=== PATIENT | female | born 1995 | race Caucasian/White ===

== ENCOUNTER 2017-09-28 22:58 | Emergency (ER) | payer BC ==
[~2017-09-28] VITALS: Ht 149.9 cm; Wt 62.1 kg
[2017-09-28 23:03] VITALS: TEMP 37.1; Ht 149.9 cm; Wt 62.1 kg
[2017-09-28] MEDS ORDERED: DiphenhydrAMINE HCL 50 MG/ML VIAL IV STA (23:10)
[2017-09-28] MEDS ORDERED: FAMOTIDINE 20MG/5ML IV PUSH IV STA (23:10)
[2017-09-28] MEDS ORDERED: DEXAMETHASONE **PF** INJ 10 MG/ML VIAL IV ONE (23:15)
[2017-09-29 00:14] VITALS: BP 121/82; PULSE 87; O2SAT 96
--- NOTE | 2017-09-29 00:18 | EMERGENCY ROOM VISIT NOTE ---
History First contact with patient: 23:09 Chief Complaint: ALLERGIC REACTION Stated Complaint: ALLERGIC REACTION, NUMB MOUTH, VOMITING, ITCHY EYE Nursing Triage Summary: pt having allergic reaction to clarithromycin. took first dose last night. took 1 benadryl at 2200. having rash to face, itching throat. History of Present Illness The patient is a 22 year old female who presents to the Emergency Room with complaints of allergic reaction shortly after taking clarithromycin tonight. Patient was prescribed this as she has had a cough for 2 weeks. Patient complains of facial swelling and rash and itchiness. She took one Benadryl. Patient denies chest pain, dyspnea, feeling of impending doom, throat tightness , abdominal pain, neck stiffness, fever, chills. She is tolerating p.o. fluids and food. Review of Systems An 10 system review of systems was completed with positives and pertinent negatives listed in the HPI. Past Medical/Surgical History Seizure disorder, tonsillectomy, appendectomy, right oophorectomy Social History Smoking Status: Never Smoker Smokeless Tobacco Use: No Alcohol Use: none Drug Use: none Occupation Status: [employer] student Physical Exam Vital Signs Date Time Temp Pulse Resp B/P (MAP) Pulse Ox O2 Delivery O2 Flow Rate FiO2 09/28/17 23:15 99 Room Air 09/28/17 23:03 37.1 83 18 123/83 99 Room Air Physical Exam VITALS: Vitals are noted on the nurse's note and reviewed by myself. Vital signs stable. GENERAL: Pleasant female speaking in full sentences, in no acute distress, nondiaphoretic, well-developed well-nourished. SKIN: The skin was without rashes, erythema, edema, or bruising. There is no tenting of the skin. Capillary reflex less than 2 seconds. HEAD: Normocephalic atraumatic. Face: Slightly erythematous with minimal perioral swelling that is blanchable EARS: External auditory canals clear, tympanic membranes pearly nolen without erythema or effusion bilaterally. EYES: Pupils equal round and reactive to light and accommodation. Conjunctivae without injection, sclerae without icterus. Extraocular movements intact. NOSE: Patent, turbinates without inflammation or discharge. No sinus tenderness. MOUTH: Mucous membranes moist. Pharynx without erythema or exudate. Uvula midline. Airway patent. Tongue does not deviate. No airway compromise, patient is not drooling NECK: Supple without nuchal rigidity. No lymphadenopathy. No thyromegaly. Cervical spine is nontender. No JVD. HEART: Regular rate and rhythm without murmurs gallops or rubs. LUNGS: Clear to auscultation bilaterally without wheezes, rales or rhonchi. No dullness to percussion. No retractions or accessory muscle use. ABDOMEN: Positive bowel sounds x 4. Normal tympanic percussion. Soft, nontender, without masses or organomegaly. Wise sign negative. No guarding or rebound tenderness. MUSCULOSKELETAL: No muscle atrophy, erythema, or edema noted. NEURO: Patient was alert and oriented to person place and time. Normal sensation to light and sharp touch. No focal neurological deficits. Medical Decision & Procedures Medications Administered Medications (Trade) Dose Ordered Sig/Arcenio Route Start Time Stop Time Status Last Admin Dose Admin Dexamethasone Sodium Phosphate (Dexamethasone Inj Pf) 10 mg NOW ONCE IV 09/28/17 23:15 09/28/17 23:16 DC 09/28/17 23:36 10 MG Diphenhydramine HCl (Benadryl Inj) 25 mg NOW STAT IV 09/28/17 23:10 09/28/17 23:12 DC 09/28/17 23:36 25 MG Famotidine (Pepcid 20mg Iv Push) 20 mg ONE STAT IV 09/28/17 23:10 09/28/17 23:12 DC 09/28/17 23:36 20 MG ED Course Prior records/ancillary studies reviewed. Triage Nursing notes reviewed. The patient's history was concerning for possible allergic reaction. Differential diagnosis: Etiologies such as allergic reaction, anaphylaxis, urticaria, Ruiz-Damon syndrome, toxic epidermal necrolysis, erythema multiforme, cellulitis, as well as others were entertained. Physical examination: As above. ER treatment provided: Continuous cardiac monitoring Benadryl 25 mg IV Pepcid 20 mg IV Decadron 10 mg IV On reassessment the patient felt better. Diagnostic interpretation by me: Chest x-ray with no acute consolidation, pneumothorax or free air per my interpretation It appears the patient had an allergic reaction most likely from the antibiotic she took since symptoms started shortly after this.This is marked as an allergy. Patient was informed not to take this medicine in the future. The above treatment did well to reverse the symptoms. After prolonged monitoring and frequent reassessments the patient did very well and symptoms resolved. The patient was counseled on the spectrum of this disease process and told to avoid potential triggers. I gave my usual and customary discussion regarding this issue. By the evaluation outlined above emergent etiologies such as recurring anaphylaxis, anaphylatic shock, airway compromise, Ruiz-Damon syndrome, toxic epidermal necrolysis, erythema multiforme, infectious etiologies, as well as others were deemed relatively unlikely. The pt informed about the findings as listed above. All questions were answered and pleased with the treatment. Return instructions were outlined and the patient was discharged in stable condition. Outpatient prescription management: EpiPen prednisone Referral: The patient was referred back to primary care physician for follow-up in 2-3 days for a recheck of the current condition. Case reviewed with my attending The chart was completed utilizing [employer] Speech voice recognition software. Grammatical errors, random word insertions, pronoun errors, and incomplete sentences are an occassional consequence of this system due to software limitations, ambient noise, and hardware issues. Any formal questions or concerns about the content, text, or information contained within the body of this dictation should be directly addressed to the physician mechanic assistant for clarification. Medical Decision As above Medication Reconcilliation Current Medication List: was personally reviewed by me Blood Pressure Screening Patient's blood pressure: Normal blood pressure Impression Primary Impression: Adverse reaction to drug Departure Information Dispostion Home / Self-Care Condition GOOD Referrals No Doctor, Assigned (PCP) Patient Instructions My [facility] Additional Instructions DO NOT drive, drink alcohol, operate machinery, or perform dangerous activities today. You were given medications in the ER that can affect your ability to safely function or operate a vehicle. Marked clarithromycin as an allergy and do not take this in the future until cleared by the family care doctor. Epi-Pen: Use one injection as instructed for severe allergic reactions associated with shortness of breath, difficulty breathing, or throat or tongue swelling. If you use this injection call 911 or proceed immediately to the nearest Emergency Room. Prednisone 50mg: Once daily until the prescription is finished. It is best to take this earlier in the day as some patients note occasional difficulty falling asleep when taken in the late evening. Diphenhydramine(Benadryl) 25mg: use 25 to 50 mg every six hours for swelling, itching, or hives. This medication is sedating and will cause drowsiness. Avoid alcohol, operating machinery or dangerous equipment, working on ladders or roofs, DRIVING, or situations where being under the influence may be dangerous. Zantac 75: Take two pills twice a day along with Benadryl as needed for swelling , itching, or hives. Most people know this for its affect on the stomach, but it also acts similar to, but less potent than Benadryl for allergic reactions. Both the Benadryl and the Zantac are available [id number]. Continue current medications. Return to the emergency department for worsening of your rash, swelling of your face, lips, tongue, or throat, difficulty breathing, vomiting, or as needed. Follow-up with your primary care physician in 2 to 3 days for a recheck of your current condition. Problem Qualifiers Primary Impression: Adverse reaction to drug Encounter type: initial encounter Qualified Codes: T88.7XXA - Unspecified adverse effect of drug or medicament, initial encounter
[2017-09-29] MEDS ORDERED: EPINEPHRINE ADULT AUTO-INJECT 0.3 MG SYR IM ONE (00:30)
[2017-09-29] MEDS ORDERED: PRED50TA PO (00:36)
[2017-09-29] MEDS ORDERED: LEVE500T13 PO ×2 (00:43)
[2017-09-29] MEDS ORDERED: BCPILLS PO (00:43)
--- NOTE | 2017-09-29 06:37 | DIAGNOSTIC IMAGING REPORT ---
CHEST 2 VIEWS ROUTINE HISTORY: 22 years-old Female cough x 2 weeks acute cough COMPARISON: None available TECHNIQUE: PA and lateral views of the chest FINDINGS: The cardiomediastinal and hilar silhouettes are within normal limits. There is no pneumothorax, pleural effusion, focal airspace consolidation or overt pulmonary edema. The bones of the chest appear grossly intact. IMPRESSION: No acute process. The above report was generated using voice recognition software. It may contain grammatical, syntax or spelling errors. Electronically signed by: Quco Hurtado M.D. 09/29/2017 6:36 AM Dictated Date/Time: 09/29/2017 6:34 AM
== END 2017-09-29 00:44 | disposition home or self-care (01) ==
LOC: C.EDB 23:00 → C.EDC 09-29 00:44
DX: R21 Rash and other nonspecific skin eruption (principal); L29.9 Pruritus, unspecified; T36.95XA Adverse effect of unspecified systemic antibiotic, initial encounter; G40.909 Epilepsy, unspecified, not intractable, without status epilepticus; Z90.721 Acquired absence of ovaries, unilateral